=== PATIENT | female | born 1975 | race Two or more races ===

== ENCOUNTER 2019-08-13 19:26 | Emergency (ER) | payer OTHER ==
[~2019-08-13] VITALS: Ht 162.6 cm; Wt 120.2 kg
[2019-08-13] MEDS ORDERED: SINGULAIR10 MG (19:46)
[2019-08-13] MEDS ORDERED: MICROZIDE12.5 MG (19:46)
[2019-08-13] MEDS ORDERED: AVAPRO300 MG (19:46)
[2019-08-13] MEDS ORDERED: CRESTOR5 MG (19:47)
[2019-08-13] MEDS ORDERED: ATROVENT HFA12.9 GM (19:47)
== END 2019-08-13 22:51 | disposition home or self-care (01) ==
LOC: ER 19:26
DX: J32.8 Other chronic sinusitis (principal); R06.02 Shortness of breath

== ENCOUNTER 2019-11-09 16:29 | Emergency (ER) | payer OTHER ==
[~2019-11-09] VITALS: Ht 162.6 cm; Wt 120.2 kg
[~2019-11-09 16:29] MED LIST: ATROVENT HFA12.9 GM; AVAPRO300 MG; CRESTOR5 MG; MICROZIDE12.5 MG; SINGULAIR10 MG
== END 2019-11-09 19:50 | disposition home or self-care (01) ==
LOC: ER 16:29
DX: J11.1 Influenza due to unidentified influenza virus with other respiratory manifestations (principal); B34.9 Viral infection, unspecified